=== PATIENT | male | born 1960 | race Caucasian/White ===

== ENCOUNTER 2017-05-29 08:23 | Day surgery (SDC) | payer OTHER ==
--- NOTE | 2017-05-28 14:30 | HP ---
PREOPERATIVE HISTORY AND PHYSICAL: DATE OF ADMISSION/SURGERY: 05/29/17 - [facility] DATE OF OFFICE VISIT/ENCOUNTER: 05/28/17 ATTENDING SURGEON: Olga Cash MD * (DICTATED BY JAYDA BAILEY) LEAD INVESTIGATOR: Dr. Lopez. PROCEDURE: Right small finger digital nerve repair. CHIEF COMPLAINT: Table saw injury, right hand. HISTORY OF PRESENT ILLNESS: This is a 56-year-old male, who sustained injury to his right hand with a table saw on 05/26/17. He was seen at [facility] Emergency Room where he had some x-rays that showed a fracture of his ring finger distal phalanx with mild displacement and comminution. He has laceration to the index finger as well and his small finger but no fractures of those fingers. He was prescribed Keflex and also has been using tramadol for pain control. 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 He also has history of cardiac issues. He had a myocardial infarction in 2008 and a subsequent triple bypass. He is followed regularly by gas main fitter, Dr. Lopez, and since his surgery, has had no further cardiac events or concerns. He finished chemotherapy a year ago for non-Hodgkin's lymphoma. PAST MEDICAL HISTORY: 1. History of MS in 2008. 2. Hypercholesterolemia. 3. Hypertension. 4. Non-Hodgkin's lymphoma. 5. Coronary artery disease. PAST SURGICAL HISTORY: 1. Triple bypass in 2008. 2. Chemotherapy port placement. CURRENT MEDICATIONS: 1. Aspirin 325 mg daily. 2. Co-enzyme Q10 100 mg daily. 3. Colace 100 mg up to 3 to 4 times a day p.r.n. constipation. 4. Crestor 20 mg daily. 5. Fish oil 1200 mg daily. 6. Lopid 600 mg twice a day. 7. Metoprolol tartrate 25 mg daily. 8. Multivitamin daily. 9. Prochlorperazine maleate 10 mg 1 to 2 tabs daily p.r.n. 10. Senna-Lax 8.6 mg 2 tabs p.r.n. 11. Vitamin E 1000 mg daily. ALLERGIES: OXYCODONE and SHRIMP' OXYCODONE causes nausea/vomiting. FAMILY MEDICAL HISTORY: Heart disease and cancer. SOCIAL HISTORY: The patient is in an electrical electronics engineers. 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 He denies tobacco use and recreational drug use. He does drink alcohol on occasion. REVIEW OF SYSTEMS: General: Negative for fevers, chills, or night sweats. No known anesthesia problems. HEENT: Negative for headache, lightheadedness, or syncopal episodes. Integumentary: Positive for current complaint. Cardiothoracic: Negative for hypertension, chest pain, palpitations, and edema. Pulmonary: Negative for shortness of breath with exertion, chronic cough , COPD. GI: Negative for nausea, vomiting, diarrhea, constipation, GERD. : Negative for nocturia, urinary frequency, urgency, history of UTIs, and kidney problems. Musculoskeletal: Positive for current complaints. Neurological: Negative for paresthesias, numbness, history of seizure, stroke or epilepsy. Endocrine: Negative for diabetes and thyroid issues. Hematologic: Negative for easy bruising, anemia, excessive bleeding, history of DVT. Infectious Disease: Negative for history of MRSA, hepatitis C, HIV. PHYSICAL EXAMINATION GENERAL: Well-developed, well-nourished, 56-year-old male, in no acute distress. VITAL SIGNS: Height 5 feet 9 inches, weight 182 pounds, pulse rate 56, blood pressure 120/90. HEENT: Normocephalic, atraumatic. Pupils are equal, round, and reactive to light and accommodation. Extraocular movements are intact. Throat is clear. NECK: Supple. No palpable lymph nodes. PULMONARY: Lungs are clear to auscultation bilaterally. No wheezes, rales, or rhonchi. CARDIOVASCULAR: Regular rate and rhythm. S1, S2. No murmurs, rubs or gallops. No edema. ABDOMEN: Positive bowel sounds. Soft, nontender. NEUROLOGICAL: Alert and oriented x3. Cranial nerves II through XII are intact. Sensation is intact to light touch. PERIPHERAL VASCULAR: 2+ radial and ulnar pulses. MUSCULOSKELETAL: On exam of his right hand, he has lacerations of his index finger, ring finger, and small finger. All the flexor tendons appear to be intact. The index finger has a laceration just at the tip without involving the nail. The flap is little pale ,but looks to be perfused from the ulnar aspect of the flap. He has sensation at the finger tip. The ring finger has a very distal flap to the fingernail. The finger tip looks a bit pale but it does appear to be perfused from the ulnar aspect of the finger and he has active flexion of both of these fingers. He has active flexion of the small finger as well but he has no sensation on the ulnar border of the finger and questionable sensation on the radial distal aspect. No erythema or other sign of infection. IMAGING STUDIES: X-rays of the hand show a fracture at the distal phalanx, mildly displaced, of the ring finger. IMPRESSION: Table saw injury to the right hand involving index finger, ring finger, and small finger with small finger digital nerve laceration. PLAN: The patient is scheduled to undergo a right small finger digital nerve repair with Dr. Cash on 05/29/17. He will return to the office 10 days postop for followup and suture removal. He has a supply of tramadol as prescribed by the emergency room that he will plan on using for postoperative pain management and we will certainly refill if needed. JAYDA BAILEY [id number]/[facility] #: [id number] [place]
[~2017-05-29 08:23] MED LIST: Buffered Lidocaine 0.9% SYRIN* 5 ML/SYR SYRINGE INTRADERM ONE; Famotidine IV* 10 MG/ML 2 ML (20 mg) IV ONE
[2017-05-29] MEDS ORDERED: Famotidine IV* 10 MG/ML 2 ML (20 mg) ONE (08:33)
[2017-05-29] MEDS ORDERED: Midazolam* 1 MG/ML 5 ML VIAL (5 MG) ONE (09:23)
[2017-05-29] MEDS ORDERED: fentaNYL* 50 MCG/ML 2 ML VIAL (100 MCG VIAL) ONE (09:23)
[2017-05-29] MEDS ORDERED: Lidocaine 1% INJ* 10 MG/ML 30 ML SDV ONE (09:49)
[2017-05-29] MEDS ORDERED: Lidocaine 2% PF * 5 ML VIAL ONE (10:31)
[2017-05-29] MEDS ORDERED: Propofol* 10 MG/ML 20 ML BTL IV PUSH ONE (10:31)
[2017-05-29] MEDS ORDERED: Ondansetron INJ* 2 MG/ML VIAL ONE (10:31)
[2017-05-29] MEDS ORDERED: Ketorolac INJ* 30 MG/ML 1 ML VIAL ONE (10:31)
[2017-05-29] MEDS ORDERED: DiMENhydriNATE IV* 50 MG/ML VIAL IV PUSH PRN (10:40)
[2017-05-29] MEDS ORDERED: HYDROcodone/ACETAMIN 5-325 MG* 1 TAB PO PRN (10:40)
[2017-05-29] MEDS ORDERED: Naloxone* 0.4 MG/ML 1 ML VIAL IV PRN (10:40)
[2017-05-29 11:40] VITALS: BP 118/76
--- NOTE | 2017-05-29 22:32 | OP ---
DATE OF OPERATION: 05/29/17 [facility] DATE OF : 56 SURGEON: Olga Cash MD TMR TEACHER: JAYDA Ponce ANESTHESIA: Local MAC. PRE-OP DIAGNOSIS: Right little finger digital nerve laceration. POST-OP DIAGNOSIS: Right little finger digital nerve laceration. OPERATIVE PROCEDURE: Right little finger radial and ulnar digital nerve repair. ESTIMATED BLOOD LOSS: Zero. TOURNIQUET TIME: 45 minutes. INDICATION FOR PROCEDURE: Charly is a 56-year-old man who injured his right hand with a table saw. He has lacerations of the ring finger and index finger at the tips and a laceration at the PIP flexion crease of his small finger and loss of sensation distal to the lacerations. Flexor tendon is intact clinically. He presents for digital nerve repair. DESCRIPTION OF PROCEDURE: The patient was brought to the operating room, was given a sedation anesthetic, and a digital block with 10 cc of 1% plain lidocaine. The skin of his right hand and forearm was prepped and draped in the usual sterile fashion. The hand and forearm were exsanguinated and the tourniquet elevated to 250 mmHg. The sutures in the small finger were removed and the wound explored. Both digital nerves were lacerated. Both flexor tendons were intact and the flexor tendon sheath was intact. The digital nerve ends were located and then repaired under loop magnification with 9-0 nylon suture. The nerves were very small. I was able to place 2 sutures in each nerve. The wound was irrigated and skin edges reapproximated with 4-0 nylon suture. The wound was dressed with Xeroform, 4x4, Webril, and a splint keeping the small finger in a little bit of flexion. The patient tolerated the procedure well and was brought to the recovery room in good condition. [id number]/[facility] #: [id number] [facility]
== END 2017-05-29 11:53 | disposition home or self-care (01) ==
LOC: OREAST 08:23
PROVIDERS: ATTEND Orthopaedic Surgery
DX: S64.496A Injury of digital nerve of right little finger, initial encounter (principal); W29.8XXA Contact with other powered hand tools and household machinery, initial encounter; Y92.9 Unspecified place or not applicable; I25.2 Old myocardial infarction; E78.00 Pure hypercholesterolemia, unspecified; I10 Essential (primary) hypertension; I25.10 Atherosclerotic heart disease of native coronary artery without angina pectoris; Z85.72 Personal history of non-Hodgkin lymphomas; Z95.1 Presence of aortocoronary bypass graft
CPT/HCPCS: J1885; J2250; J2405; J2704; J3010